=== PATIENT | male | born 2000 | race Caucasian/White ===

== ENCOUNTER 2024-11-24 08:28 | Emergency (ER) | payer OTHER ==
[~2024-11-24] VITALS: Ht 188 cm; Wt 127.0 kg
[2024-11-24 08:31] VITALS: O2SAT 98
[2024-11-24 08:35] VITALS: BP 116/87; PULSE 73; RESP 18; TEMP 36.7; O2SAT 98
[2024-11-24] MEDS ORDERED: IBUP-2029 MT (09:38)
[2024-11-24] MEDS ORDERED: METH-653 MT (09:38)
== END 2024-11-24 09:54 | disposition home or self-care (01) ==
LOC: ER 08:28
DX: S33.5XXA Sprain of ligaments of lumbar spine, initial encounter (principal); Z79.899 Other long term (current) drug therapy; X58.XXXA Exposure to other specified factors, initial encounter; Y93.89 Activity, other specified; Y92.89 Other specified places as the place of occurrence of the external cause; Y99.8 Other external cause status
CPT/HCPCS: 99283